=== PATIENT | male | born 1995 | race Caucasian/White ===

== ENCOUNTER 2018-09-03 19:17 | Emergency (ER) | payer OTHER ==
[~2018-09-03] VITALS: Ht 167.6 cm; Wt 79.4 kg
[2018-09-03 19:20] VITALS: BP 148/77
--- NOTE | 2018-09-03 19:25 | NUR ---
PATIENT AMBULATED TO ER BED 2.
--- NOTE | 2018-09-03 19:55 | NUR ---
ER-MD CAME BY BEDSIDE TO EVALUATE PT.
--- NOTE | 2018-09-03 20:18 | NUR ---
DISCHARGED BY ER-MD STABLE WITH PRESCRIPTION AND AFTERCARE INSTRUCTIONS GIVEN TO PATIENT. VERBALIZED UNDERSTANDING.
[2018-09-03 20:20] VITALS: BP 148/77
== END 2018-09-03 20:18 | disposition home or self-care (01) ==
LOC: MED 19:17
DX: S76.312A Strain of muscle, fascia and tendon of the posterior muscle group at thigh level, left thigh, initial encounter (principal); X50.0XXA Overexertion from strenuous movement or load, initial encounter; Y93.89 Activity, other specified; Y92.89 Other specified places as the place of occurrence of the external cause; Y99.8 Other external cause status
CPT/HCPCS: 99282